=== PATIENT | male | born 2000 | race Caucasian/White ===

== ENCOUNTER 2023-08-06 03:18 | Emergency (ER) | payer SELFPAY ==
[~2023-08-06] VITALS: Ht 170.2 cm; Wt 70.0 kg
[2023-08-06 03:20] VITALS: BP 128/80; PULSE 86; RESP 16; TEMP 97.9; O2SAT 100
[2023-08-06] MEDS ORDERED: PROM25TA13 MT (05:41)
[2023-08-06] MEDS ORDERED: ONDA4TAB11 PO (05:41)
[2023-08-06] MEDS: ONDANSETRON 4MG ODT PO ONE (06:06)
[2023-08-06] MEDS: PROMETHAZINE HCL 25MG TABLET PO STA (06:06)
== END 2023-08-06 06:08 | disposition home or self-care (01) ==
LOC: ER 03:18
DX: F11.23 Opioid dependence with withdrawal (principal); Z88.1 Allergy status to other antibiotic agents
CPT/HCPCS: 99283; Q0162; Q0169